=== PATIENT | female | born 1975 | race Two or more races ===

== ENCOUNTER → 2017-09-29 | Emergency (ER) | payer OTHER ==
[~2017-09-29] VITALS: Ht 160 cm; Wt 54.4 kg
[~2017-09-29] MED LIST: PRENATAL MULTI1 EAC1
== END | disposition home or self-care (01) ==
LOC: ER 16:36
DX: Z34.81 Encounter for supervision of other normal pregnancy, first trimester (principal); O20.8 Other hemorrhage in early pregnancy